=== PATIENT | female | born 1980 | race Caucasian/White ===

== ENCOUNTER 2017-01-01 01:18 | Emergency (ER) | payer OTHER ==
[2017-01-01 02:31] LABS: BILIRUBIN NEGATIVE (NEGATIVE); BLOOD NEGATIVE Ery/uL (NEGATIVE); CLARITY CLOUDY (CLEAR); COLOR YELLOW (YELLOW); GLUCOSE (U) 1+ mg/dL (NORMAL); KETONE (U) 1+ (SMALL) mg/dL (NEGATIVE); LEUKOCYTES NEGATIVE Leu/uL (NEGATIVE); NITRITE NEGATIVE (NEGATIVE); PROTEIN TRACE (LOW) mg/dL (NEGATIVE); UROBILINOGEN 0.2 mg/dL (0.2-1.0); pH 6.5 (5.0-9.0)
[2017-01-01 02:37] LABS: BACTERIA 1+
[2017-01-01 02:39] LABS: BARBITURATES NEGATIVE (NEGATIVE); BENZODIAZEPINES NEGATIVE (NEGATIVE); COCAINE NEGATIVE (NEGATIVE); MARIJUANA (THC) NEGATIVE (NEGATIVE); METHADONE NEGATIVE (NEGATIVE); TRICYCLIC ANTIDEPRESSANT NEGATIVE (NEGATIVE)
[2017-01-01 02:40] LABS: AMPHETAMINES POSITIVE (NEGATIVE)
[2017-01-01 03:47] LABS: BASOPHIL 0.1 % (0-2); EOSINOPHIL 0.5 % (0-5); HCT 43.1 % (37.0-47.0); HGB 14.8 g/dl (12.5-16.0); MCH 28.5 pg (25.0-31.0); MCHC 34.3 g/dL (32.0-36.0); MONOCYTE 6.1 % (0-12); MPV 10.8 fL (6.0-9.5); NEUTROPHIL 83.3 % (41-80); PLT 298 K/uL (150-400); RBC 5.19 M/uL (4.20-5.40); RDW 14.6 % (11.5-14.0); WBC 14.3 K/uL (4.0-10.5)
[2017-01-01 04:09] LABS: CREATININE 1.4 mg/dL (0.5-1.0); POTASSIUM 3.7 mmol/L (3.5-5.1)
[2017-01-01 04:10] LABS: ACETAMINOPHEN (TYLENOL) < 5.0 ug/mL (10.0-30.0); SALICYLATE < 6 ug/mL (0-300)
== END 2017-01-01 07:46 | disposition home or self-care (01) ==
LOC: FER 01:18
PROVIDERS: Emergency Medicine
DX: T40.1X1A Poisoning by heroin, accidental (unintentional), initial encounter (principal); T43.621A Poisoning by amphetamines, accidental (unintentional), initial encounter; F11.10 Opioid abuse, uncomplicated; F15.10 Other stimulant abuse, uncomplicated; F31.30 Bipolar disorder, current episode depressed, mild or moderate severity, unspecified
CPT/HCPCS: 36415; 80048; 80305; 81001; 85025; 93005; G0480

== ENCOUNTER 2021-10-16 21:39 | Emergency (ER) | payer OTHER ==
[~2021-10-16 21:39] MED LIST: ATARAX25 MG PO; CERTAGEN1 EACH PO
[2021-10-16 22:10] LABS: BASOPHIL 0.6 % (0-2); HGB 10.5 g/dl (12.5-16.0); LYMPHOCYTE 21.4 % (15-48); MCH 24.1 pg (25.0-31.0); MCHC 30.9 g/dL (32.0-36.0); MONOCYTE 7.5 % (0-12); NEUTROPHIL 67.1 % (41-80); NRBC 0; PLT 262 K/uL (150-400); RBC 4.36 M/uL (4.20-5.40); RDW 17.2 % (11.5-14.0)
[2021-10-16 22:32] LABS: ALBUMIN 3.3 g/dL (3.4-5.0); BILIRUBIN - TOTAL 0.2 mg/dL (0.2-1.0); BUN/CREAT RATIO (CALC) 17.2 RATIO; CREATININE 0.93 mg/dL (0.51-0.95); POTASSIUM 3.4 mmol/L (3.5-5.1); TOTAL PROTEIN 6.3 g/dL (6.4-8.2)
[2021-10-16 22:53] LABS: LACTIC ACID 0.7 mmol/L (0.4-1.9)
[2021-10-17] MEDS ORDERED: ONDANSETRON ODT4 MG SL (00:50)
[2021-10-17] MEDS ORDERED: LORTAB 10 MG-3473 ML PO (00:50)
[2021-10-17] MEDS ORDERED: HYDROCODON-ACE473 ML PO (15:02)
== END 2021-10-17 01:00 | disposition home or self-care (01) ==
LOC: FER 21:39
PROVIDERS: Emergency Medicine Emergency Medical Services
DX: K80.20 Calculus of gallbladder without cholecystitis without obstruction (principal); I10 Essential (primary) hypertension
CPT/HCPCS: 36415; 80053; 83605; 83690; 84145; 85025; J1170; J1885; J2405; J7030; Q9967

== ENCOUNTER 2021-10-26 17:25 | Emergency (ER) | payer OTHER ==
[~2021-10-26 17:25] MED LIST changes: +HYDROCODON-ACE473 ML PO; +LORTAB 10 MG-3473 ML PO; +ONDANSETRON ODT4 MG SL
[2021-10-26 19:31] LABS: EOSINOPHIL 4.6 % (0-5); HCT 32.6 % (37.0-47.0); HGB 10.1 g/dl (12.5-16.0); LYMPHOCYTE 29.3 % (15-48); MCH 24.2 pg (25.0-31.0); MCV 78.2 fL (78.0-100.0); MONOCYTE 8.5 % (0-12); MPV 9.7 fL (6.0-9.5); NEUTROPHIL 56.3 % (41-80); NRBC 0; PLT 256 K/uL (150-400); RBC 4.17 M/uL (4.20-5.40); RDW 17.4 % (11.5-14.0); WBC 7.1 K/uL (4.0-10.5)
[2021-10-26 19:48] LABS: ALBUMIN 3.2 g/dL (3.4-5.0); BILIRUBIN - TOTAL 0.2 mg/dL (0.2-1.0); BUN/CREAT RATIO (CALC) 9.3 RATIO; CREATININE 1.4 mg/dL (0.51-0.95); GLOBULIN (CALCULATION) 2.9 g/dL; POTASSIUM 3.5 mmol/L (3.5-5.1); TOTAL PROTEIN 6.1 g/dL (6.4-8.2)
[2021-10-26] MEDS ORDERED: NORCO 5-325 TA1 EACH PO (21:25)
[2021-10-26] MEDS ORDERED: ONDANSETRON ODT4 MG PO (21:25)
== END 2021-10-26 21:39 | disposition home or self-care (01) ==
LOC: FER 17:25
PROVIDERS: Nurse Practitioner Family
DX: K80.20 Calculus of gallbladder without cholecystitis without obstruction (principal)
CPT/HCPCS: 36415; 76705; 80053; 85025; J2270; J2405; Q0162

== ENCOUNTER 2021-11-16 14:22 | Emergency (ER) | payer OTHER ==
[~2021-11-16 14:22] MED LIST changes: +NORCO 5-325 TA1 EACH PO; +ONDANSETRON ODT4 MG PO
[2021-11-16 15:33] LABS: BASOPHIL 0.6 % (0-2); EOSINOPHIL 1.2 % (0-5); HCT 34.5 % (37.0-47.0); HGB 10.7 g/dl (12.5-16.0); LYMPHOCYTE 13.6 % (15-48); MCH 24.2 pg (25.0-31.0); MCV 77.9 fL (78.0-100.0); MONOCYTE 4.4 % (0-12); MPV 11.4 fL (6.0-9.5); NEUTROPHIL 79.7 % (41-80); NRBC 0; PLT 255 K/uL (150-400); RBC 4.43 M/uL (4.20-5.40); RDW 16.1 % (11.5-14.0); WBC 6.4 K/uL (4.0-10.5)
[2021-11-16 15:51] LABS: ALBUMIN 3.7 g/dL (3.4-5.0); BILIRUBIN - TOTAL 0.3 mg/dL (0.2-1.0); BUN/CREAT RATIO (CALC) 9.1 RATIO; CREATININE 1.1 mg/dL (0.51-0.95); GLOBULIN (CALCULATION) 3.1 g/dL; POTASSIUM 3.4 mmol/L (3.5-5.1); TOTAL PROTEIN 6.8 g/dL (6.4-8.2)
[2021-11-17] MEDS ORDERED: COLACE100 MG PO (10:57)
[2021-11-17] MEDS ORDERED: MOTRIN600 MG PO (10:57)
[2021-11-17] MEDS ORDERED: ACETAMINOPHEN500 M1 PO (10:57)
[2021-11-17] MEDS ORDERED: OXY-IR 5MG5 MG PO (10:57)
== END 2021-11-16 16:32 | disposition home or self-care (01) ==
LOC: FER 14:22
PROVIDERS: Nurse Practitioner Family
DX: R10.84 Generalized abdominal pain (principal); R11.0 Nausea; F17.210 Nicotine dependence, cigarettes, uncomplicated; Z20.822 Contact with and (suspected) exposure to COVID-19
CPT/HCPCS: 36415; 80053; 85025; J2270; J2405; J7030

== ENCOUNTER → 2021-11-17 | Day surgery (SDC) | payer OTHER ==
[~2021-11-17] VITALS: Ht 165.1 cm; Wt 73.9 kg
[~2021-11-17] MED LIST changes: +ACETAMINOPHEN500 M1 PO; +COLACE100 MG PO; +MOTRIN600 MG PO; +OXY-IR 5MG5 MG PO
[2021-11-17 08:11] LABS: HCG (URINE) SCREEN NEGATIVE (NEGATIVE)
== END | disposition home or self-care (01) ==
LOC: FAS 07:34
PROVIDERS: Anesthesiology
DX: K80.12 Calculus of gallbladder with acute and chronic cholecystitis without obstruction (principal); K66.0 Peritoneal adhesions (postprocedural) (postinfection); F31.9 Bipolar disorder, unspecified; I10 Essential (primary) hypertension; F17.210 Nicotine dependence, cigarettes, uncomplicated
CPT/HCPCS: 84703; J1100; J1644; J2250; J2405; J2550; J2704; J2710; J3010; J3490; J7120